=== PATIENT | male | born 1975 | race American Indian/Alaskan Native ===

== ENCOUNTER 2020-09-08 13:22 | Emergency (ER) | payer SELFPAY ==
--- NOTE | 2020-09-08 13:35 | Event Note ---
ED Screening Note Date of service: 09/08/20 Time: 13:34 ED Screening Note: This 45-year-old male with a history of congestive heart failure, hypertension presents ED with shortness of breath and bilateral leg swelling and blistering. This initial assessment/diagnostic orders/clinical plan/treatment(s) is/are subject to change based on patients health status, clinical progression and re- assessment by fellow clinical providers in the ED. Further treatment and workup at subsequent clinical providers discretion. Patient/guardian urged not to elope from the ED as their condition may be serious if not clinically assessed and managed. Initial orders include: Labs ordered. Main side eval.
--- NOTE | 2020-09-08 14:12 | XRay Report ---
CHEST 2 VIEWS INDICATION / CLINICAL INFORMATION: Dyspnea. COMPARISON: None available. FINDINGS: SUPPORT DEVICES: None. HEART / MEDIASTINUM: Heart is enlarged LUNGS / PLEURA: No significant pulmonary or pleural abnormality. No pneumothorax. ADDITIONAL FINDINGS: No significant additional findings. IMPRESSION: 1. Cardiomegaly Signer Name: Josh Porter MD Signed: 09/08/2020 2:08 PM Workstation Name: [id number]
[2020-09-08 14:31] LABS: Basophils % (Auto) 0.2 % (0.0-1.8); Eosinophils # (Auto) 0.3 K/mm3 (0.0-0.4); Eosinophils % (Auto) 3.8 % (0.0-4.3); Hemoglobin 11.1 gm/dl (11.8-15.2); Lymphocytes # (Auto) 1.1 K/mm3 (1.2-5.4); Lymphocytes % (Auto) 15.2 % (13.4-35.0); Mean Corpuscular HGB Conc 31 % (32-34); Mean Corpuscular Volume 94 fl (84-94); Monocytes # (Auto) 0.7 K/mm3 (0.0-0.8); Platelet Count 244 K/mm3 (140-440); Red Blood Count 3.81 M/mm3 (3.65-5.03); Red Cell Distribution Width 15.4 % (13.2-15.2)
[2020-09-08 14:40] LABS: INR 1.39 (0.87-1.13); Partial Thromboplastin Time 28.1 Sec. (24.2-36.6)
[2020-09-08 14:54] LABS: Creatine Kinase MB 1.5 ng/mL (0.0-4.0)
[2020-09-08 14:57] LABS: Alanine Aminotransferase 11 units/L (7-56); Albumin 3.6 g/dL (3.9-5); BUN/Creatinine Ratio 17; Blood Urea Nitrogen 19 mg/dL (9-20); Calcium 8.3 mg/dL (8.4-10.2); Hemolysis Index 1
[2020-09-08] MEDS ORDERED: FUROSEMIDE 40 MG/4 ML INJ IV ONE (18:01)
--- NOTE | 2020-09-08 18:06 | Emergency Department Report ---
ED Shortness of Breath HPI - General Chief Complaint: Dyspnea/Respdistress Stated Complaint: SOB/CHF Time Seen by Provider: 09/08/20 17:53 Source: patient Mode of arrival: Ambulatory Limitations: No Limitations - History of Present Illness Initial Comments: Patient is 45 years old morbidly obese male with history of congestive heart failure and hypertension. Patient presented to the ER complaining of shortness of breath and bilateral lower extremity swelling and blistering for the last few days. Patient stated that he was diagnosed with congestive heart failure 1 month ago at [facility]. He was not given prescription for water pill. Patient currently denying any chest pain, cough, fever or chills. MD Complaint: shortness of breath -: days(s) Known History Of: congestive heart failure Associated Symptoms: denies other symptoms Treatments Prior to Arrival: none - Related Data Allergies Allergy/AdvReac Type Severity Reaction Status Date / Time No Known Allergies Allergy Unverified 09/08/20 13:36 ED Review of Systems ROS: Stated complaint: SOB/CHF Other details as noted in HPI Comment: All other systems reviewed and negative Constitutional: denies: chills, fever Respiratory: orthopnea, shortness of breath, SOB with exertion, SOB at rest. denies: cough, wheezing Cardiovascular: denies: chest pain, palpitations Gastrointestinal: denies: abdominal pain, nausea, vomiting Musculoskeletal: denies: back pain Neurological: denies: headache, weakness, numbness, paresthesias, confusion ED Past Medical Hx - Past Medical History Previous Medical History?: Yes Hx Hypertension: Yes Hx Congestive Heart Failure: Yes Hx COPD: Yes (home O2) ED Physical Exam - General Limitations: No Limitations General appearance: alert, in no apparent distress - Head Head exam: Present: atraumatic, normocephalic, normal inspection - Eye Eye exam: Present: normal appearance, PERRL - ENT ENT exam: Present: normal exam, normal orophraynx, mucous membranes moist - Neck Neck exam: Present: normal inspection, full ROM. Absent: tenderness, meningismus - Respiratory Respiratory exam: Present: normal lung sounds bilaterally - Cardiovascular Cardiovascular Exam: Present: regular rate, normal rhythm, normal heart sounds - GI/Abdominal GI/Abdominal exam: Present: soft, distended, normal bowel sounds. Absent: tenderness, guarding, rebound, rigid, organomegaly, mass, bruit, pulsatile mass - Extremities Exam Extremities exam: Present: pedal edema - Back Exam Back exam: Present: normal inspection, full ROM. Absent: CVA tenderness (R), CVA tenderness (L) - Neurological Exam Neurological exam: Present: alert, oriented X3, CN II-XII intact. Absent: motor sensory deficit - Psychiatric Psychiatric exam: Present: normal mood - Skin Skin exam: Present: warm, intact, normal color ED Course Vital Signs 09/08/20 13:28 Temperature 97.7 F Pulse Rate 99 H Respiratory 22 Rate Blood Pressure 110/59 [Right] O2 Sat by Pulse 90 Oximetry ED Medical Decision Making - Lab Data Result diagrams: 09/08/20 13:47 09/08/20 13:47 - EKG Data -: EKG Interpreted by De EKG shows normal: sinus rhythm Rate: normal - EKG Data Interpretation: no acute changes - Radiology Data Radiology results: report reviewed - Medical Decision Making Patient is 45 years old morbidly obese male with history of congestive heart failure and hypertension. Patient presented to the ER complaining of shortness of breath and bilateral lower extremity swelling and blistering for the last few days. Patient stated that he was diagnosed with congestive heart failure 1 month ago at [facility]. He was not given prescription for water p ill. Patient currently denying any chest pain, cough, fever or chills. EKG is unremarkable. Labs reviewed and is unremarkable. Chest x-ray showed cardiomegaly. Patient received Lasix 60 mg IV Critical care attestation.: If time is entered above; I have spent that time in minutes in the direct care of this critically ill patient, excluding procedure time. ED Disposition Clinical Impression: CHF exacerbation Disposition: - TO HOME OR SELFCARE Is pt being admited?: No Condition: Stable Instructions: Heart Failure, Self Care, [id number] Referrals: [facility] [Provider Group] - 3-5 Days
[2020-09-08 21:09] VITALS: BP 133/82
--- NOTE | 2020-09-09 14:44 | Electrocardiograph Report ---
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
== END 2020-09-08 19:55 | disposition home or self-care (01) ==
LOC: ED 13:22
DX: I11.0 Hypertensive heart disease with heart failure (principal); I50.9 Heart failure, unspecified; J44.9 Chronic obstructive pulmonary disease, unspecified; Z79.899 Other long term (current) drug therapy
CPT/HCPCS: 36415; 71046; 80053; 82140; 82550; 82553; 83880; 84484; 85025; 85610; 85730; 93005; 96374; 99284; J1940